=== PATIENT | male | born 1985 | race Two or more races ===

== ENCOUNTER 2016-10-28 15:12 | Emergency (ER) | payer SELFPAY ==
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
== END 2016-10-28 16:15 | disposition home or self-care (01) ==
LOC: SED 15:12
DX: S43.102A Unspecified dislocation of left acromioclavicular joint, initial encounter (principal); V49.00XA Driver injured in collision with unspecified motor vehicles in nontraffic accident, initial encounter
CPT/HCPCS: 73030; 99283

== ENCOUNTER 2017-03-14 11:18 | Emergency (ER) | payer BC | END 2017-03-14 12:40 | disposition home or self-care (01) | LOC: SED 11:18 | DX: S16.1XXA Strain of muscle, fascia and tendon at neck level, initial encounter (principal); S46.912A Strain of unspecified muscle, fascia and tendon at shoulder and upper arm level, left arm, initial encounter; J30.2 Other seasonal allergic rhinitis; X58.XXXA Exposure to other specified factors, initial encounter; Y92.009 Unspecified place in unspecified non-institutional (private) residence as the place of occurrence of the external cause | CPT/HCPCS: 99283 ==